=== PATIENT | male | born 2000 | race Caucasian/White ===

== ENCOUNTER 2022-05-23 22:01 | Emergency (ER) | payer BC, OTHER ==
[2022-05-23 23:42] LABS: Absolute Neutrophil Ct (ANC) 12.33 x10^3/uL (1.4-6.9); Basophil (Absolute #) 0.07 x10^3/uL (0-0.4); Eosinophil (Absolute #) 0.16 x10^3/uL (0-0.5); Hematocrit 39.7 % (42-50); Hemoglobin 13.3 g/dL (12.5-18.0); Lymphocyte (Absolute #) 2.07 x10^3/uL (1.0-4.6); Lymphocytes % 13.2 % (24.0-44.0); Mean Corpuscular Hemoglobin 27.5 pg (26-32); Mean Corpuscular Hgb Concent. 33.5 g/dL (32-36); Mean Platelet Volume 9.4 fL (7.5-11.0); Monocyte (Absolute #) 0.93 x10^3/uL (0.0-1.3); Platelet Count 337 x10^3/uL (150-450); Red Blood Count 4.84 x10^6/uL (4.1-5.6); Red Cell Distribution Width 12.9 % (11.5-14.0); White Blood Count 15.6 x10^3/uL (4.0-10.5)
[2022-05-23 23:56] LABS: ALBUMIN 4.9 g/dL (3.5-5.0); ALKALINE PHOSPHATASE 74 U/L (38-126); ANION GAP 12.2 MEQ/L (5-15); BLOOD UREA NITROGEN 12 mg/dL (9-20); CHLORIDE 104 mmol/L (98-107); Calcium 9.5 mg/dL (8.4-10.2); Carbon Dioxide 24 mmol/L (22-30); Creatinine 1 0.92 mg/dL (0.66-1.25); EST GLOMERULAR FILTRATION RATE > 60.0 ML/MIN; Glucose 108 mg/dL (74-106); Potassium 3.9 mmol/L (3.5-5.1); SGOT/AST 35 U/L (17-59); SGPT/ALT 13 U/L (0-50); SODIUM 136 mmol/L (137-145); Total Protein 8.2 g/dL (6.3-8.2)
[2022-05-24 00:02] LABS: Appearance CLEAR (CLEAR); Bilirubin SMALL (NEGATIVE); Dipstick done @ ? MAIN LAB; Glucose NEGATIVE (NEGATIVE); Ketones NEGATIVE (NEGATIVE); Nitrite NEGATIVE (NEGATIVE); Ph 5.5 (5-6); Protein,Urine Dip 100 (Negative); RBC LARGE Ery/ul (0-5); Specific Gravity >=1.030 (1.005-1.025); Urobilinogen 0.2 mg/dL (0-1)
[2022-05-24 00:22] LABS: Bacteria MODERATE /HPF (NEGATIVE); Mucus SLIGHT /HPF (NEGATIVE); WBC 0-2 /HPF (0-5)
[2022-05-24 00:27] LABS: RBC >101 /HPF (0-2)
[2022-05-24 00:28] LABS: Urine Cultured Indicated? YES
[2022-05-24 01:07] VITALS: BP 128/71; PULSE 88; O2SAT 97
[2022-05-24] MEDS ORDERED: NORCO 5/325 MG PO ONE (01:18)
--- NOTE | 2022-05-24 01:18 | ERPHSYRPT ---
- History of Present Illness Time Seen by Provider: 05/23/22 23:25 Historian: patient Exam Limitations: no limitations Patient Subjective Stated Complaint: pt states "My lower back started and shooting to groin." Triage Nursing Assessment: pt ambulatory to bed by self, pt alert and oriented x3, pt c/o R sided flank pain that shoots into groin area, pt had 10/10 but took aleve and the pain is about a 2 or 3, pt has dark, tea colored urine Physician History: Patient is a 21-year-old white male who has a sudden onset of right flank pain and dark-colored urine. He took 2 Aleve and had relief of his pain. He was concerned primarily about the appearance of the urine. Presently he is pain is fairly well controlled. He has had no nausea or vomiting. Timing/Duration: today Activities at Onset: none Quality: sharpness, stabbing Abdominal Pain Onset Location: flank (Right flank) Pain Radiation: RLQ, groin Modifying Factors: Improves With: analgesics Previous symptoms: no prior history Allergies/Adverse Reactions: No Known Drug Allergies Allergy (Verified 05/23/22 23:15) Hx Tetanus, Diphtheria Vaccination/Date Given: No Hx Influenza Vaccination/Date Given: No Hx Pneumococcal Vaccination/Date Given: No Immunizations Up to Date: Yes Travel Risk - International Travel Have you traveled outside of the country in past 3 weeks: No - Coronavirus Screening Are you exhibiting any of the following symptoms?: No Close contact with a COVID-19 positive Pt in past 14-21 Days: No - Vaccine Status Have you recieved a Covid-19 vaccination: Yes Budget Assistant: Moderna - Vaccination Dates Date of 2cond Vaccination (if applicable): 2020 - Review of Systems Constitutional: No Fever, No Chills Eyes: No Symptoms Ears, Nose, & Throat: No Symptoms Respiratory: No Cough, No Dyspnea Cardiac: No Chest Pain, No Edema, No Syncope Abdominal/Gastrointestinal: No Abdominal Pain, No Nausea, No Vomiting, No Diarrhea Genitourinary Symptoms: Hematuria, Flank Pain, No Dysuria Musculoskeletal: No Back Pain, No Neck Pain Skin: No Rash Neurological: No Dizziness, No Focal Weakness, No Sensory Changes Psychological: No Symptoms Endocrine: No Symptoms All Other Systems: Reviewed and Negative - Past Medical History Pertinent Past Medical History: No Neurological History: No Pertinent History ENT History: No Pertinent History Cardiac History: No Pertinent History Respiratory History: Asthma Endocrine Medical History: No Pertinent History Musculoskeletal History: No Pertinent History GI Medical History: No Pertinent History History: No Pertinent History Psycho-Social History: No Pertinent History Male Reproductive Disorders: No Pertinent History - Past Surgical History Past Surgical History: No - Social History Smoking Status: Never smoker Exposure to second hand smoke: No Drug Use: none Patient Lives Alone: No Significant Family History: no pertinent family hx - Nursing Vital Signs Nursing Vital Signs: Initial Vital Signs Temperature 98.3 F 05/23/22 23:16 Pulse Rate 107 H 05/23/22 23:16 Respiratory Rate 18 05/23/22 23:16 Blood Pressure 152/88 05/23/22 23:16 O2 Sat by Pulse Oximetry 100 05/23/22 23:16 Pain Scale Pain Intensity 2 - Physical Exam General Appearance: no apparent distress, alert Eye Exam: PERRL/EOMI, eyes nml inspection Ears, Nose, Throat Exam: normal ENT inspection, pharynx normal, moist mucous membranes Neck Exam: normal inspection, non-tender, supple, full range of motion Respiratory Exam: normal breath sounds, lungs clear, No respiratory distress Cardiovascular Exam: regular rate/rhythm, normal heart sounds Gastrointestinal/Abdomen Exam: soft, No tenderness, No mass Back Exam: normal inspection, normal range of motion, No CVA tenderness, No vertebral tenderness Extremity Exam: normal inspection, normal range of motion, pelvis stable Neurologic Exam: alert, oriented x 3, cooperative, normal mood/affect, nml cerebellar function, sensation nml, No motor deficits Skin Exam: normal color, warm, dry SpO2: 97 - Course Nursing assessment & vital signs reviewed: Yes - CT Exams Abdomen/Pelvis CT Interpretation: Other (1.8 mm stone distal right ureter) Ordered Tests: Active Orders 24 hr Category Date Time Status IV Insertion STAT Care 05/23/22 23:26 Active ABDOMEN AND PELVIS W/0 CONTRAS [CT] Stat Exams 05/23/22 23:24 Taken CBC W DIFF Stat Lab 05/23/22 23:20 Completed CMP Stat Lab 05/23/22 23:20 Completed CULTURE,URINE Stat Lab 05/23/22 23:26 Received UA W/RFX CULTURE Stat Lab 05/23/22 23:26 Completed Lab/Rad Data: Laboratory Result Diagrams 05/23/22 23:20 05/23/22 23:20 Laboratory Results 05/23/22 05/23/22 05/23/22 Range/Units 23:26 23:20 23:20 WBC 15.6 H (4.0-10.5) x10^3/uL RBC 4.84 (4.1-5.6) x10^6/uL Hgb 13.3 (12.5-18.0) g/dL Hct 39.7 L (42-50) % MCV 82.0 (78-100) fL MCH 27.5 (26-32) pg MCHC 33.5 (32-36) g/dL RDW 12.9 (11.5-14.0) % Plt Count 337 (150-450) x10^3/uL MPV 9.4 (7.5-11.0) fL Gran % 79.0 H (36.0-66.0) % Immature Gran % (Auto) 0.4 (0.00-0.4) % Nucleat RBC Rel Count 0.0 (0.00-0.1) % Eos # (Auto) 0.16 (0-0.5) x10^3/uL Immature Gran # (Auto) 0.07 H (0.00-0.03) x10^3u/L Absolute Lymphs (auto) 2.07 (1.0-4.6) x10^3/uL Absolute Monos (auto) 0.93 (0.0-1.3) x10^3/uL Absolute Nucleated RBC 0.00 (0.00-0.01) x10^3u/L Lymphocytes % 13.2 L (24.0-44.0) % Monocytes % 6.0 (0.0-12.0) % Eosinophils % 1.0 (0.00-5.0) % Basophils % 0.4 (0.0-0.4) % Absolute Granulocytes 12.33 H (1.4-6.9) x10^3/uL Basophils # 0.07 (0-0.4) x10^3/uL Sodium 136 L (137-145) mmol/L Potassium 3.9 (3.5-5.1) mmol/L Chloride 104 (98-107) mmol/L Carbon Dioxide 24 (22-30) mmol/L Anion Gap 12.2 (5-15) MEQ/L BUN 12 (9-20) mg/dL Creatinine 0.92 (0.66-1.25) mg/dL Estimated GFR > 60.0 ML/MIN Glucose 108 H (74-106) mg/dL Calcium 9.5 (8.4-10.2) mg/dL Total Bilirubin 0.50 (0.2-1.3) mg/dL AST 35 (17-59) U/L ALT 13 (0-50) U/L Alkaline Phosphatase 74 (38-126) U/L Serum Total Protein 8.2 (6.3-8.2) g/dL Albumin 4.9 (3.5-5.0) g/dL Urinalys Dipstick Clnc MAIN LAB Urine Color YELLOW (YELLOW) Urine Appearance CLEAR (CLEAR) Urine pH 5.5 (5-6) Ur Specific [place] >=1.030 A (1.005-1.025) POC Urine Protein Conf 100 A (Negative) Urine Ketones NEGATIVE (NEGATIVE) Urine Nitrite NEGATIVE (NEGATIVE) Urine Bilirubin SMALL A (NEGATIVE) Urine Urobilinogen 0.2 (0-1) mg/dL Urine Leukocytes NEGATIVE (NEGATIVE) Urine WBC (Auto) 0-2 (0-5) /HPF Urine RBC (Auto) >101 A (0-2) /HPF U Epithel Cells (Auto) NONE (FEW) /HPF Urine Bacteria (Auto) MODERATE A (NEGATIVE) /HPF Urine RBC LARGE A (0-5) Gordon/ul Urine Mucus (Auto) SLIGHT A (NEGATIVE) /HPF Ur Culture Indicated? YES Urine Glucose NEGATIVE (NEGATIVE) mg/dL - Progress Progress: pain not gone completely - Departure Departure Disposition: Home Clinical Impression: Right ureteral calculus Condition: Stable Critical Care Time: No Referrals: MARY LOU KILGORE NP [Primary Care Provider] - Follow up/PCP as directed Instructions: Renal Colic (DC) Prescriptions: Hydrocodone/Acetaminophen [Hydrocodone-Acetamin 5-325 mg] 1 tab PO Q6HPRN PRN 3 Days #12 tablet MDD 4 PRN Reason: Pain
[2022-05-24] MEDS ORDERED: NORCO 5/325 MG ONE (01:24)
--- NOTE | 2022-05-24 09:03 | XRAY ---
Indication: Right flank pain. Multiple contiguous axial images obtained through the abdomen and pelvis without contrast. Comparison: None Lung bases clear. Heart not enlarged. Noncontrasted stomach and bowel loops appear nonobstructed with normal appendix. No free fluid/air. Distal right ureter demonstrates punctate calculus just proximal to UVJ. Very minimal proximal right ureter prominence and minimal hydronephrosis favoring partial obstructive uropathy. Remaining liver, gallbladder, pancreas, spleen, adrenal glands, kidneys, ureters, bladder, and aorta are unremarkable for noncontrast exam. Osseous structures intact. No ventral or inguinal hernias. Impression: Punctate distal right ureteral calculus producing minimal obstructive uropathy. Comment: Preliminary interpretation made by [facility]. No critical discrepancy.
== END 2022-05-24 01:29 | disposition home or self-care (01) ==
LOC: ED 22:01
DX: N20.1 Calculus of ureter (principal); R10.9 Unspecified abdominal pain; Z79.891 Long term (current) use of opiate analgesic
CPT/HCPCS: 36000; 36415; 74176; 80053; 81015; 85025; 87086; 99283; A9270-GY